=== PATIENT | male | born 1995 | race Caucasian/White ===

== ENCOUNTER 2022-12-20 10:55 | Emergency (ER) | payer OTHER, SELFPAY ==
--- NOTE | ~2022-12-20 | XR_ITS ---
EXAMINATION: XR humerus RT DATE: 12/20/2022 11:47 INDICATION: Right upper arm injury. TECHNIQUE: 2 views of right humerus on 3 radiographs were obtained. COMPARISON: None. FINDINGS: Bone alignment is normal. No fracture. Joint spaces are well maintained. IMPRESSION: 1. Normal right humerus. Reviewed, dictated and finalized at location A. IRONER IMPRESSION: 1. Normal right humerus.
[2022-12-20 11:30] VITALS: BP 160/90; PULSE 100; RESP 18; TEMP 36.6; O2SAT 100
[2022-12-20] MEDS: TETANUS,DIPHTHERIA,AC PERTUSSIS ADULT (0.5 ML) BOOSTRIX (12:53)
--- NOTE | 2022-12-20 13:20 | ED.WOUNDLAC ---
HPI - Wound/Laceration General Chief Complaint: Wound/Laceration Stated Complaint: fall - right arm lac Time Seen by Provider: 12/20/22 12:39 History of Present Illness HPI narrative: Patient is a 27-year-old male who presents ER with laceration to his right arm. In the triceps region. He is walking at a worksite when he tripped and fell against the metal supports for [employer]. The metal did not de paz through his sweatshirt. It did however cause a pull and a laceration to the arm. Last tetanus shot over 10 years ago. No numbness or tingling. Did not strike his head or lose consciousness. No additional concerns. Related Data Home Medications Medication Instructions Recorded Confirmed No Home Medications 12/20/22 12/20/22 Allergies Allergy/AdvReac Type Severity Reaction Status Date / Time No Known Allergies Allergy Mild Verified 12/20/22 12:35 Review of Systems Musculoskeletal: Musculoskeletal: Denies arthralgias and Denies joint swelling Integumentary/Breasts: Skin/Breast: Denies erythema and Denies rash Comments: arm laceration Neurologic: Denies syncope, Denies focal weakness and Denies numbness PMFSH Past Medical History Medical History (Updated 12/20/22 @ 13:43 by Raul Ortega MD) Healthy adult male Surgical History Surgical History (Updated 12/20/22 @ 13:23 by Raul Ortega MD) No history of previous surgery Exam Narrative: GENERAL: Well-appearing, well-nourished, and in no acute distress. HEAD: Normocephalic, atraumatic. CHEST: Clear to auscultation. No respiratory distress. HEART: Regular rate and rhythm. Normal peripheral pulses. EXTREMITIES: Normal range of motion. No edema. SKIN: Warm, dry, no rash. Laceration of the right upper extremity beneath the triceps 6 cm in length with exposure of subcutaneous tissue but no muscle laceration. Bleeding controlled. No foreign body visualized in a bloodless field. There is an additional 1 cm laceration proximal to the longer 6 cm laceration. Again no foreign body and bleeding controlled and this is a simple superficial laceration. NEURO: Alert and oriented x3. No numbness or tingling to the right upper extremity. PSYCH: Normal mood and affect. Course Course Emergency Course: Lacerations repaired. Patient informed of x-ray results. Discussed return precautions and patient verbalized understanding. Charles to be removed in 2 weeks Vital Signs Vital signs: Vital Signs Temperature 97.8 F 12/20/22 11:30 Pulse Rate 100 12/20/22 11:30 Respiratory Rate 18 12/20/22 11:30 Blood Pressure 160/90 H 12/20/22 11:30 Pulse Oximetry 100 12/20/22 11:30 Oxygen Delivery Room Air 12/20/22 11:30 Temperature 97.8 F 12/20/22 11:30 Pulse Rate 100 12/20/22 11:30 Respiratory Rate 18 12/20/22 11:30 Blood Pressure 160/90 H 12/20/22 11:30 Pulse Oximetry 100 12/20/22 11:30 Oxygen Delivery Room Air 12/20/22 11:30 Procedures Laceration Laceration 1: Date: 12/20/22 Time: 13:35 Site: other (right arm) Size (cm): 6 Description: linear Depth: simple, single layer Local Anesthetic: lidocaine 1% Amount of anesthesia used (mL): 6 Pre-repair: wound explored and irrigated extensively ====== Skin Level ====== Skin layer closed with: charles Number of sutures: 9 ====== Subcutaneous Layer ====== ====== Muscle Layer ====== ====== Tendon Layer ====== Laceration 2: Date: 12/20/22 Time: 13:30 Side (If applicable): right (upper arm) Size (cm): 1 Description: linear Depth: simple, single layer Local Anesthetic: lidocaine 1% Amount of anesthesia used (mL): 2 Pre-repair: wound explored and irrigated extensively ====== Skin Level ====== Skin layer closed with: charles Number of sutures: 2 ====== Subcutaneous Layer ====== ==
== END 2022-12-20 13:58 | disposition home or self-care (01) ==
PROVIDERS: Emergency Provider Emergency Medicine; PCP Internal Medicine
DX: S41.111A Laceration without foreign body of right upper arm, initial encounter (principal); Z23 Encounter for immunization; W18.49XA Other slipping, tripping and stumbling without falling, initial encounter; W22.8XXA Striking against or struck by other objects, initial encounter
CPT/HCPCS: 12002; 73060; 90471; 90715; 99283

== ENCOUNTER 2024-10-07 15:19 | Emergency (ER) | payer OTHER, SELFPAY ==
[2024-10-07 15:30] VITALS: BP 156/99; PULSE 79; RESP 18; TEMP 37.2; O2SAT 98
--- NOTE | 2024-10-07 15:58 | ED_ITS ---
HPI - Ear Problem General Chief complaint: Ear Stated complaint: Left Ear Irritation Time Seen by Provider: 10/07/24 15:58 Source: patient, RN notes reviewed and old records reviewed Mode of arrival: ambulatory Limitations: no limitations History of Present Illness HPI Narrative: 28-year-old male presents to the [facility] with concerns that he has a cotton portion of a Q-tip in his left ear. States he got out of the shower, cleaned his ears and the cotton portion was missing. About 2 hours, states that he tried getting it out. Related Data Allergies Allergy/AdvReac Type Severity Reaction Status Date / Time No Known Allergies Allergy Mild Verified 12/20/22 12:35 Review of Systems Review of Systems: All systems reviewed & are unremarkable except as noted in HPI and below Constitutional: Constitutional: Reports no additional constitutional complaints ENT: Reports as per HPI Cardiovascular: Cardiovascular: Reports no additional cardiovascular complaints, Denies chest pain and Denies dyspnea Respiratory: Respiratory: Reports no additional respiratory complaints, Denies chest congestion, Denies cough and Denies dyspnea Gastrointestinal: Gastrointestinal: Reports no additional gastrointestinal complaints, Denies abdominal pain, Denies nausea and Denies vomiting Musculoskeletal: Musculoskeletal: Reports no additional musculoskeletal complaints Integumentary/Breasts: Skin/Breast: Reports system reviewed and no additional complaints, except as docu PMFSH Past Medical History Medical History Healthy adult male Surgical History Surgical History No history of previous surgery Comments At the time of my signature, I reviewed and agree with the nursing past medical, surgical, social, and family history. There is no relevant family history pertinent to the patient complaint. Exam Const: General: cooperative, healthy appearing, comfortable, no acute distress, well developed, alert and well nourished Nutritional Appearance: well nourished Orientation/consciousness: patient oriented x3 Limitations: no limitations HENMT: Head: normal to inspection Ears: hearing grossly normal bilaterally, external ears normal and Abnormal EAC present erythema and foreign body on the left; no edema and no EA tenderness Face/Nose/Sinus: Normal external nose present, normal facial exam and face symmetric Face and sinus: normal facial exam and face symmetric Mouth: Yes Normal oral and palatal mucosa present, Yes lip normal and Yes tongue normal Eyes: General: appearance normal, both eyes and all related structures Alignment and Position: alignment normal Periorbital: periorbital findings normal Neck: Neck: normal visual inspection, full ROM, no lymphadenopathy and no meningeal signs Chest: Chest palpation & inspection: normal inspection of the chest Resp: Effort & Inspection: normal respiratory effort and able to speak in complete sentences Cardio: Rate: regular rate Skin: General skin exam: normal color and no rashes or lesions noted Lesions: no lesions Rashes: no rashes Wounds: no wounds Neuro: General: patient oriented x3, gait normal, tone normal, moves all extremities and no meningeal signs Cognition (Neuro): normal cognition Speech: normal speech Gait exam (Neuro): Normal gait present Extrem: General: normal to inspection, full ROM, capillary refill normal and normal gait Psych: Appearance: grossly normal and well kempt Mental Status: mental status grossly normal Speech and movement: Normal speech and movement present and Clear speech present Affect: normal affect Attitude: cooperative Course Course Level of Care: Express Care Visit Vital Signs Vital signs: Vital Signs Temperature 99 F 10/07/24 15:30 Pulse Rate 79 10/07/24 15:30 Respiratory Rate 18 10/07/24 15:30 Blood Pressure 156/99 H 10/07/24 15:30 Pulse Oximetry 98 10/07/24 15:30 Oxygen Delivery Room Air 10/07/24 15:30 Temperature 99 F 10/07/24 15:30 Pulse Rate 79 10/07/24 15:30 Respiratory Rate 18 10/07/24 15:30 Blood Pressure 156/99 H 10/07/24 15:30 Pulse Oximetry 98 10/07/24 15:30 Oxygen Delivery Room Air 10/07/24 15:30 Reviewed Procedures FB Removal Ear Foreign Body #1: Foreign Body Removal Date: 10/07/24 Foreign Body Removal Time: 16:00 Location: ear canal (L) Foreign Body Suspected: other (q-tip,) TM intact pre-procedure: yes If Insect Suspected: ear canal instilled with other (Peroxide and water) Foreign Body Removed: yes Foreign Body Removal Technique: curette Tympanic Membrane Intact Post Procedure: Yes Patient Tolerated Procedure: well Complications: none Medical Decision Making MDM Narrative Medical decision making narrative: Patient sitting comfortably in exam room. Nontoxic, vitals stable. Patient in no acute distress Patient presents for foreign body to the left ear Piece of cotton removed. Patient tolerated well. Inflammation noted to the ear canal, will treat with steroid drops, antibiotic drops. Patient appropriate for outpatient treatment and follow-up Discharge instructions reviewed with patient, as well as provided in writing per nursing staff. The instructions also include specific and strict return/GO TO THE ER as well as f/u information. All questions have been answered, and the patient deny any further questions with discharge and discharge plan. Some parts of this dictation were generated by voice recognition software and may contain typographical and/or grammatical inaccuracies. Differential Diagnosis Differential Diagnosis: Foreign body, otitis media, otitis externa Medical Records Medical records reviewed: Yes I reviewed the external patient's medical records. Vital Signs Vital Signs: Vital Signs Temperature 99 F 10/07/24 15:30 Pulse Rate 79 10/07/24 15:30 Respiratory Rate 18 10/07/24 15:30 Blood Pressure 156/99 H 10/07/24 15:30 Pulse Oximetry 98 10/07/24 15:30 Oxygen Delivery Room Air 10/07/24 15:30 Temperature 99 F 10/07/24 15:30 Pulse Rate 79 10/07/24 15:30 Respiratory Rate 18 10/07/24 15:30 Blood Pressure 156/99 H 10/07/24 15:30 Pulse Oximetry 98 10/07/24 15:30 Oxygen Delivery Room Air 10/07/24 15:30 Reviewed Lab Data Lab results reviewed: Yes I reviewed the patient's lab results. Labs: Reviewed Critical Care Time Critical Care Time Critical Care Time: No Discharge Plan Discharge Clinical Impression: Acute foreign body of left ear canal Patient Disposition: Home, Self-Care Condition: Stable Instructions: Antibiotic Form, Earache (ED) Additional Instructions: Do not put anything in your ears Use ear drops as prescribed Follow-up with primary care provider. Today your blood pressure was 156/99. Is recommended you follow-up within 2 weeks for further evaluation For new or worsening symptoms go directly to emergency Patient Language: Cuban Prescriptions: New [id number] 3.5-10,000-1 mg/mL-unit/mL-% drops,suspension 4 drp LEFT EAR Q6H 5 Days Qty: 10 0RF Follow-up/Referrals: Candy,Johnathon Burgos MD [Primary Care Provider] - 2 Weeks (express care follow up ) Stand Alone Forms: Work/School Release IP Time of Disposition: 16:09
== END 2024-10-07 16:15 | disposition home or self-care (01) ==
PROVIDERS: Emergency Provider Nurse Practitioner; PCP Internal Medicine
DX: T16.2XXA Foreign body in left ear, initial encounter (principal); W44.8XXA Other foreign body entering into or through a natural orifice, initial encounter
CPT/HCPCS: 69200; 99213; G0463